=== PATIENT | male | born 1960 | race Caucasian/White ===

== ENCOUNTER 2018-01-13 11:06 | Inpatient (IN) | payer OTHER, SELFPAY ==
[2018-01-13] MEDS ORDERED: NA CHLORIDE 0.9% 1,000 ML ONE ×2 (11:44→14:14)
[2018-01-13] MEDS ORDERED: MORPHINE 4 MG/ML SYR ONE ×2 (11:44→14:14)
[2018-01-13] MEDS ORDERED: ONDANSETRON 4 MG/2 ML VIAL ONE (11:44)
[2018-01-13 12:01] LABS: Absolute Lymphocytes (CBC) 1.1 K/uL (0.7-4.9); Absolute Monocytes 0.7 K/uL (0.1-1.3); Absolute Neutrophil 9.7 K/uL (1.8-8.0); Basophils % 0.7 % (0-1.3); Eosinophils % 1.4 % (0-4.4); Hematocrit 51.2 % (39.6-49.0); Lymphocytes % 9.6 % (15.3-44.8); MCH 30.6 pg (27.0-35.0); MCV 90.3 fL (80-100); MPV 9.3 fL (7.6-11.3); Monocytes % 6.3 % (3.3-12.3); RBC Red Blood Cell Count 5.67 M/uL (4.33-5.43)
[2018-01-13 12:18] LABS: Albumin 3.9 g/dL (3.4-5.0); Bilirubin Direct 0.2 mg/dL (0-0.2); Bilirubin Total 0.6 mg/dL (0.2-1.0); Potassium 3.3 mmol/L (3.5-5.1); Protein, Total 8.1 g/dL (6.4-8.2)
--- NOTE | 2018-01-13 12:25 | RAD REPORT ---
EXAM DESCRIPTION: CT - Stone Protocol - 01/13/2018 11:57 am CLINICAL HISTORY: Abdominal pain. Left upper quadrant pain vomiting and diarrhea COMPARISON: 2014 TECHNIQUE: Computed axial tomography of the abdomen pelvis was obtained without oral or IV contrast. Lack of IV and oral contrast limits evaluation of solid organs, bowel, and vessels. Coronal reformat parth images were obtained and reviewed. All CT scans are performed using dose optimization technique as appropriate and may include automated exposure control or mA/KV adjustment according to patient size. FINDINGS: A renal calculus is not seen. An ureteral calculus is not noted. A bladder calculus is not present. Small renal masses are nonspecific without IV contrast but probably are. The liver, spleen, pancreas and adrenals appear grossly normal There is no evidence of diverticulitis. Several loops of distal jejunum/proximal ileum are moderately dilated. The terminal ileum is decompre ssed. The. The fluid is present within the rectosigmoid colon. IMPRESSION: Negative for a genitourinary calculus Moderately dilated small bowel may probably is secondary to an adynamic ileus. A closed loop obstruct ion could also have this appearance. If the patient's symptoms do not improve then followup imaging w ould be recommended for re-evaluation.
[2018-01-13] MEDS ORDERED: CEFOXITIN/SWI 1gm 1 GM/10 ML SYR ONE (14:13)
[2018-01-13] MEDS ORDERED: ONDANSETRON 4 MG/2 ML VIAL IV PRN (14:20)
--- NOTE | 2018-01-13 15:17 | EDPHYS ---
Physician Documentation [facility] Name: Larry Hancock Age: 57 yrs Sex: Male : 1960 Arrival Date: 01/13/2018 Time: 11:08 Bed 14 Private MD: Tex Salazar V ED Physician Jose Maria Anderson HPI: 01/13 19:09 This 57 yrs old Male presents to ER via Ambulatory with complaints of gs Abdominal Cramping, Diarrhea. 19:09 The patient presents with abdominal pain that is diffuse. Onset: The symptoms/episode gs began/occurred 2 day(s) ago, and became worse and became persistent. The symptoms do not radiate. Associated signs and symptoms: Pertinent positives: nausea and vomiting, Pertinent negatives: chest pain. The symptoms are described as crampy, sharp. Modifying factors: The symptoms are alleviated by nothing, the symptoms are aggravated by food. Severity of pain: At its worst the pain was moderate in the emergency department the pain is unchanged. The patient has not experienced similar symptoms in the past. Historical: - Allergies: 11:22 No Known Allergies; aa5 - PMHx: 11:22 Hypertension; aa5 - PSHx: 11:24 Hernia repair; Knee surgery; aa5 - Immunization history:: Flu vaccine is not up to date. - Social history:: Smoking status: Patient uses tobacco products, smokes one-half pack cigarettes per day. - Ebola Screening: : No symptoms or risks identified at this time. ROS: 19:09 Constitutional: Negative for fever. gs 19:09 All other systems are negative. Exam: 19:09 Head/Face: Normocephalic, atraumatic. Eyes: Pupils equal round and reactive to light, gs extra-ocular motions intact. Lids and lashes normal. Conjunctiva and sclera are non-icteric and not injected. Cornea within normal limits. Periorbital areas with no swelling, redness, or edema. ENT: Nares patent. No nasal discharge, no septal abnormalities noted. Tympanic membranes are normal and external auditory canals are clear. Oropharynx with no redness, swelling, or masses, exudates, or evidence of obstruction, uvula midline. Mucous membranes moist. Neck: Trachea midline, no thyromegaly or masses palpated, and no cervical lymphadenopathy. Supple, full range of motion without nuchal rigidity, or vertebral point tenderness. No Meningismus. Chest/axilla: Normal chest wall appearance and motion. Nontender with no deformity. No lesions are appreciated. Cardiovascular: Regular rate and rhythm with a normal S1 and S2. No gallops, murmurs, or rubs. Normal PMI, no JVD. No pulse deficits. Respiratory: Lungs have equal breath sounds bilaterally, clear to auscultation and percussion. No rales, rhonchi or wheezes noted. No increased work of breathing, no retractions or nasal flaring. Back: No spinal tenderness. No costovertebral tenderness. Full range of motion. Skin: Warm, dry with normal turgor. Normal color with no rashes, no lesions, and no evidence of cellulitis. MS/ Extremity: Pulses equal, no cyanosis. Neurovascular intact. Full, normal range of motion. Neuro: Awake and alert, GCS 15, oriented to person, place, time, and situation. Cranial nerves II-XII grossly intact. Motor strength 5/5 in all extremities. Sensory grossly intact. Cerebellar exam normal. Normal gait. 19:09 Constitutional: The patient appears alert, awake. 19:09 Constitutional: The patient appears uncomfortable. 19:09 Abdomen/GI: Inspection: distension, that is mild, Palpation: moderate abdominal tenderness, in all quadrants, rebound tenderness, is not appreciated. Vital Signs: 11:23 BP 108 / 71; Pulse 99; Resp 16 S; Temp 98.8(O); Pulse Ox 99% on R/A; Weight 111.13 kg aa5 (R); Height 6 ft. 5 in. (195.58 cm) (R); Pain 7/10; 12:22 BP 100 / 62; Pulse 106; Resp 17; Pulse Ox 94% on R/A; mh5 13:58 BP 136 / 93; Pulse 92; Resp 18; Pulse Ox 96% on R/A; ph 14:52 BP 112 / 64; Pulse 93; Resp 16; Pulse Ox 95% on R/A; ph 11:23 Body Mass Index 29.05 (111.13 kg, 195.58 cm) aa5 MDM: 11:27 Patient medically screened. 19:09 Differential diagnosis: bowel obstruction, gastritis, non-specific abd pain, gs pancreatitis, Peptic Ulcer Disease. Data reviewed: vital signs, nurses notes. Response to treatment: the patient's symptoms have mildly improved after treatment, and as a result, I will admit patient. 01/13 11:30 Order name: Basic Metabolic Panel; Complete Time: 12:37 01/13 11:30 Order name: CBC with Diff; Complete Time: 12:37 01/13 11:30 Order name: Hepatic Function; Complete Time: 12:37 01/13 11:30 Order name: Lipase; Complete Time: 12:37 01/13 13:46 Order name: Blood Culture* 01/13 14:23 Order name: Basic Metabolic Panel [facility] 01/13 11:30 Order name: CT Stone Protocol; Complete Time: 12:37 01/13 14:23 Order name: Basic Metabolic Panel [facility] 01/13 14:23 Order name: CBC with Automated Diff [facility] 01/13 14:23 Order name: CBC with Automated Diff [facility] 01/13 14:23 Order name: Lipase [facility] 01/13 14:23 Order name: Lipase [facility] 01/13 14:23 Order name: Liver (Hepatic) Function [facility] 01/13 14:23 Order name: Liver (Hepatic) Function [facility] 01/13 11:30 Order name: IV Saline Lock; Complete Time: 11:53 01/13 11:30 Order name: Labs collected and sent; Complete Time: 11:54 01/13 14:23 Order name: CONS Physician Consult [facility] 01/13 14:23 Order name: NPO; Complete Time: 14:36 EDMS Administered Medications: 11:52 Drug: morphine 4 mg Route: IVP; Site: left antecubital; ph 11:53 Drug: NS 0.9% 1000 ml Route: IV; Rate: 1 bolus; Site: right antecubital; ph 11:53 Drug: Zofran 4 mg Route: IVP; Site: right antecubital; ph 14:35 Drug: morphine 4 mg Route: IVP; Site: right antecubital; ph 14:38 Drug: NS 0.9% 1000 ml Route: IV; Rate: 175 ml/hr; Site: right antecubital; ph 15:10 Drug: cefOXitin 1 grams Route: IVPB; Infused Over: 30 mins; Site: right antecubital; ph Disposition: 01/13/18 15:16 Hospitalization ordered by Tex Salazar for Inpatient Admission. Preliminary diagnosis is Other intestinal obstruction. - Bed requested for Telemetry/MedSurg (Inpatient). - Status is Inpatient Admission. ph - Condition is Stable. - Problem is new. - Symptoms have improved. UTI on Admission? No Critical care time excluding procedures: 19:09 Critical care time: Bedside Care: 10 minutes, Consultation: 10 minutes, Family gs Intervention: 10 minutes. Total time: 30 minutes Signatures: Dispatcher [employer] EDMS Reyna Neumann Audri, RN RN aa5 Gerri Garcia RN RN Anderson, MD ELIZABETH Moise gs Corrections: (The following items were deleted from the chart) 15:28 15:16 Hospitalization Ordered by Tex Salazar MD for Inpatient Admission. Preliminary bd diagnosis is Other intestinal obstruction. Bed requested for Telemetry/MedSurg (Inpatient). Status is Inpatient Admission. Condition is Stable. Problem is new. Symptoms have improved. UTI on Admission? No. gs 15:29 15:28 01/13/2018 15:16 Hospitalization Ordered by Tex Salazar MD for Inpatient bd Admission. Preliminary diagnosis is Other intestinal obstruction. Bed requested for Telemetry/MedSurg (Inpatient). Status is Inpatient Admission. Condition is Stable. Problem is new. Symptoms have improved. UTI on Admission? No. bd 15:49 15:29 01/13/2018 15:16 Hospitalization Ordered by Tex Salazar MD for Inpatient ph Admission. Preliminary diagnosis is Other intestinal obstruction. Bed requested for Telemetry/MedSurg (Inpatient). Status is Inpatient Admission. Condition is Stable. Problem is new. Symptoms have improved. UTI on Admission? No. bd
--- NOTE | 2018-01-13 15:17 | ER ---
Nurse's Notes [facility] Name: Larry Hancock Age: 57 yrs Sex: Male : 1960 Arrival Date: 01/13/2018 Time: 11:08 Bed 14 Private MD: Tex Salazar V Diagnosis: Other intestinal obstruction Presentation: 01/13 11:21 Presenting complaint: Patient states: LUQ pain that began yesterday. Pt reports N/V/D aa5 today. Transition of care: patient was not received from another setting of care. Onset of symptoms was January 13, 2018. Risk Assessment: Do you want to hurt yourself or someone else? Patient reports no desire to harm self or others. Initial Sepsis Screen: Does the patient meet any 2 criteria? No. Patient's initial sepsis screen is negative. Does the patient have a suspected source of infection? No. Patient's initial sepsis screen is negative. Care prior to arrival: None. 11:21 Method Of Arrival: Ambulatory aa5 11:21 Acuity: DIANDRA 3 aa5 Historical: - Allergies: 11:22 No Known Allergies; aa5 - PMHx: 11:22 Hypertension; aa5 - PSHx: 11:24 Hernia repair; Knee surgery; aa5 - Immunization history:: Flu vaccine is not up to date. - Social history:: Smoking status: Patient uses tobacco products, smokes one-half pack cigarettes per day. - Ebola Screening: : No symptoms or risks identified at this time. Screenin:47 Abuse screen: Denies threats or abuse. Denies injuries from another. Nutritional ph screening: No deficits noted. Tuberculosis screening: No symptoms or risk factors identified. Fall Risk None identified. Assessment: 11:35 General: Appears in no apparent distress. uncomfortable, slender, well groomed, ph Behavior is calm, cooperative, appropriate for age, Denies fever. Pain: Complains of pain in left upper quadrant Pain currently is 9 out of 10 on a pain scale. Neuro: Level of Consciousness is awake, alert, obeys commands, Oriented to person, place, time, situation. Cardiovascular: Capillary refill < 3 seconds Patient's skin is warm and dry. Respiratory: Airway is patent Respiratory effort is even, unlabored, Respiratory pattern is regular, symmetrical. GI: Abdomen is flat, non-distended, Bowel sounds present X 4 quads. Abd is soft X 4 quads Abdomen is tender to palpation in left upper quadrant Reports upper abdominal pain, diarrhea, nausea, vomiting. : Denies burning with urination, urinary frequency. Derm: Skin is intact, is healthy with good turgor, Skin is pink, warm \T\ dry. Musculoskeletal: Circulation, motion, and sensation intact. Range of motion: intact in all extremities. 12:45 Reassessment: Patient appears in no apparent distress at this time. Patient and/or ph family updated on plan of care and expected duration. Pain level reassessed. Patient is alert, oriented x 3, equal unlabored respirations, skin warm/dry/pink. Pt resting quietly, states that pain has improved to 7/10, denies nausea at this time, awaiting CT and lab results. 13:51 Reassessment: Patient appears in no apparent distress at this time. Patient and/or ph family updated on plan of care and expected duration. Pain level reassessed. Patient is alert, oriented x 3, equal unlabored respirations, skin warm/dry/pink. ERP at bedside to speak w/ pt. 15:15 Reassessment: Patient appears in no apparent distress at this time. Patient and/or ph family updated on plan of care and expected duration. Pain level reassessed. Patient is alert, oriented x 3, equal unlabored respirations, skin warm/dry/pink. Ptr resting quietly, awaiting room assignmmet. Vital Signs: 11:23 BP 108 / 71; Pulse 99; Resp 16 S; Temp 98.8(O); Pulse Ox 99% on R/A; Weight 111.13 kg aa5 (R); Height 6 ft. 5 in. (195.58 cm) (R); Pain 7/10; 12:22 BP 100 / 62; Pulse 106; Resp 17; Pulse Ox 94% on R/A; mh5 13:58 BP 136 / 93; Pulse 92; Resp 18; Pulse Ox 96% on R/A; ph 14:52 BP 112 / 64; Pulse 93; Resp 16; Pulse Ox 95% on R/A; ph 11:23 Body Mass Index 29.05 (111.13 kg, 195.58 cm) aa5 ED Course: 11:08 Patient arrived in ED. rg4 11:09 Tex Salazar MD is Private Physician. rg4 11:19 Jose Maria Anderson MD is Attending Physician. gs 11:22 Triage completed. aa5 11:22 Arm band placed on. aa5 11:33 Gerri Garcia RN is Primary Nurse. ph 11:57 CT Stone Protocol In Process Unspecified. EDMS 13:47 Patient has correct armband on for positive identification. Placed in gown. Bed in low ph position. Call light in reach. Side rails up X 1. Pulse ox on. NIBP on. Warm blanket given. 15:14 Tex Salazar MD is Hospitalizing Provider. gs 15:45 No provider procedures requiring assistance completed. Patient admitted, IV remains in ph place. Administered Medications: 11:52 Drug: morphine 4 mg Route: IVP; Site: left antecubital; ph 11:53 Drug: NS 0.9% 1000 ml Route: IV; Rate: 1 bolus; Site: right antecubital; ph 11:53 Drug: Zofran 4 mg Route: IVP; Site: right antecubital; ph 14:35 Drug: morphine 4 mg Route: IVP; Site: right antecubital; ph 14:38 Drug: NS 0.9% 1000 ml Route: IV; Rate: 175 ml/hr; Site: right antecubital; ph 15:10 Drug: cefOXitin 1 grams Route: IVPB; Infused Over: 30 mins; Site: right antecubital; ph Outcome: 15:16 Decision to Hospitalize by Provider. gs 15:49 Patient left the ED. ph 15:49 Admitted to Med/surg accompanied by tech, family with patient, via wheelchair, with ph chart. 15:49 Condition: stable 15:49 Instructed on the need for admit. Signatures: Dispatcher [employer] EDNJ Julianna Rodriguez RN RN aa5 Hall, Patricia, RN RN Myriam Kilgore [facility] Shivani Terry [facility] Jose Maria Anderson MD MD gs
[2018-01-13 16:09] VITALS: BMI 31.1
[2018-01-13 16:30] LABS: Urine Appearance CLOUDY; Urine Blood 1+ (NEG); Urine Color ORANGE; Urine Glucose NEGATIVE (NEG); Urine Protein 2+ (NEG); Urine Specific Gravity >=1.030 (1.005-1.030); Urine Urobilinogen 0.2 mg/dL (0.2-1.0); Urine pH 5.5 (5.0-7.0)
[2018-01-13 16:35] LABS: Urine Bilirubin 1+ (NEG)
[2018-01-13 16:43] LABS: Urine Bacteria <20 /HPF (NONE SEEN); Urine Culture Reflex Order NOT NEEDED; Urine Mucus 2+ /HPF (NONE SEEN)
[2018-01-13] MEDS: D5 0.45 NS 1,000 ML IV SCH ×2 (16:56→21:18)
[2018-01-13] MEDS: CEFOXITIN/SWI 1gm 1 GM/10 ML SYR IV SCH (18:00)
[2018-01-13] MEDS: MORPHINE 4 MG/ML SYR IV PRN (18:59)
[2018-01-13] MEDS: LORazepam 2 MG/ML VIAL IV PRN (21:18)
[2018-01-14] MEDS: MORPHINE 4 MG/ML SYR IV PRN ×5 (01:09→21:22)
[2018-01-14] MEDS: D5 0.45 NS 1,000 ML IV SCH ×5 (01:12→21:26)
[2018-01-14] MEDS: LORazepam 2 MG/ML VIAL IV PRN ×2 (04:04→08:31)
--- NOTE | 2018-01-14 05:01 | HP ---
Date of Admission: 01/13/2018 Chief Complaint: Abdominal distention. History Of Present Illness: The patient is a 57-year-old gentleman with past medical history of high blood pressure, but not many other medical problems, who has had umbilical hernia repair multiple ye ars ago, comes in with abdominal pain, distention, diarrhea for about a day or so, followed by vomiti ng for one time and mainly his abdomen which is distended and he had a CT scan of the abdomen which s howed bowel obstruction on a CAT scan in the emergency Room, so he is admitted now in the hospital fo r further workup. Past Medical History: High blood pressure, diverticulosis of colon, cervical radicular pain in the p ast. Social History: Former smoker. Medications: Amlodipine 2.5 mg once a day, losartan HCT 100-12.5 once a day. Past Surgical History: He had umbilical hernia repair multiple years ago and he had a knee surgery a nd shoulder surgery in the past. Physical Examination: Vital Signs: Mr. Hutchins blood pressure is 108/71, pulse is 99, temperature 98.8. HEENT Exam: No JVD. No carotid bruits. Chest: Clear. Heart: Irregular. Abdomen: No guarding. No rebound. There is a distention of abdomen. Bowel sounds are hyperactive and loud and diffuse tenderness around the umbilical region, but no rebound and no guarding or rigidi ty. Imaging Data: On CT scan of the abdomen, patient shows moderately dilated small bowel, closed loop o bstruction could have similar appearance, and there is no renal stone visible. Laboratory Data: On laboratory examination, white count 11,800, hemoglobin 17, hematocrit 51, platel ets of 235,000. Potassium 3.3, creatinine 1.70, globulin of 4.2. EKG report is not available. Ches t x-ray is not done. We will order a chest x-ray. Assessment And Plan: Bowel obstructive. I have advised the nurses to do NG tube with low intermitte nt suction tonight. I just got a phone call from Ivett, the RN, that there was output of 1300 mL f rom the NG tube as soon as they placed it in. The patient is very anxious about NG tubes, so we are giving him Ativan 0.5 mg q.4 h. p.r.n. for agitation and anxiousness from the NG tube itself. Dr. Vita castillo has been consulted. We will do an x-ray every day or according to what Dr. Dominguez would want, and follow up on lab work every day. Prognosis is overall fair. Hopefully, we will be able to avoid martinez rgery at this point. KATHERINE/YONATHAN Voice ID: [id number]
[2018-01-14] MEDS: CEFOXITIN/SWI 1gm 1 GM/10 ML SYR IV SCH ×4 (05:45→18:30)
[2018-01-14 05:57] LABS: Absolute Lymphocytes (CBC) 2.3 K/uL (0.7-4.9); Absolute Monocytes 1.3 K/uL (0.1-1.3); Absolute Neutrophil 5.2 K/uL (1.8-8.0); Basophils % 0.4 % (0-1.3); Eosinophils % 2.9 % (0-4.4); Hematocrit 41.9 % (39.6-49.0); Lymphocytes % 25.3 % (15.3-44.8); MCV 89.5 fL (80-100); MPV 9.8 fL (7.6-11.3); Monocytes % 14.4 % (3.3-12.3); RBC Red Blood Cell Count 4.68 M/uL (4.33-5.43)
[2018-01-14 06:20] LABS: Albumin 3.1 g/dL (3.4-5.0); Bilirubin Direct 0.1 mg/dL (0-0.2); Bilirubin Total 0.3 mg/dL (0.2-1.0); Potassium 3.2 mmol/L (3.5-5.1); Protein, Total 6.5 g/dL (6.4-8.2)
[2018-01-14] MEDS: KCL 20 MEQ/100 mL IVPB 20 MEQ/100 ML BAG IV SCH ×2 (06:55→08:36)
--- NOTE | 2018-01-14 07:57 | RAD REPORT ---
EXAM DESCRIPTION: RAD - Abdomen Single View - 01/13/2018 10:14 pm CLINICAL HISTORY: Device placement Dobhoff tube placement FINDINGS: The tip of a Dobhoff tube lies within the distal stomach. Dilated small bowel within the left upper quadrant is seen which could indicate an obstruction or adynamic ileus
--- NOTE | 2018-01-14 14:45 | RAD REPORT ---
EXAM DESCRIPTION: RAD - Abdomen Acute Series - 01/14/2018 2:33 pm CLINICAL HISTORY: Abdominal pain, small bowel obstruction COMPARISON: Chest film August 10, 2014, CT abdomen and pelvis January 13 FINDINGS: Lung volumes are low. Lung base atelectasis present. Failure and acute infiltrate are not suspected. Heart size and pulmonary vasculature are normal. No pleural effusion, pneumothorax or othe r acute cardiopulmonary process seen. NG tube is in place well positioned within a decompressed stomach. Air is present in the right side c olon. Stool and air present in the left side colon. No colon dilatation. Dilated small bowel loops ar e present primarily left upper quadrant of the abdomen. Small bowel pattern has improved but not full y resolved. No free air or pneumatosis identifiable. No suspicious calcifications. No other suspicious for significant findings. IMPRESSION: Dilated small bowel pattern has improved but not resolved. No free air or pneumatosis se en. No acute chest finding. NG tube is in good position within a decompressed stomach.
--- NOTE | 2018-01-14 14:59 | CON ---
Date of Consultation: 01/13/2018 Reason: Abdominal distention. History Of Present Illness: The patient is a 57-year-old gentleman who comes in with acute onset of diarrhea on Saturday morning following eating spicy chicken on Saturday night. It lasted for about a d ay or so. He had some nausea and vomiting on Saturday; however his pain in the left upper quadrant did not improve. He came to the ER, was diagnosed with adynamic ileus versus small-bowel obstruction ve rsus gastroenteritis and I was consulted. He is currently passing gas and having bowel movements. N o nausea or vomiting but the NG tube is putting quite a bit out. No blood in his stool. No dysuria or hematuria. No sore throat, runny nose, cough, headaches, or dizziness. No chest pain. No fever or chills. Review of Systems: Otherwise unremarkable. Past Medical History: Significant for high blood pressure, diverticulosis. Past Surgical History: Umbilical hernia surgery, knee surgery and shoulder surgery. Allergies: NONE. THE PATIENT QUIT SMOKING A COUPLE OF DAYS AGO. DRINKS OCCASIONALLY. Family History: Significant for breast cancer and ALS in the parents. Physical Examination: Vital Signs: His vital signs are stable. He is afebrile. General: He is awake, alert, orient x3. Head and neck: Cranial nerves 2 through 12 grossly within normal limits. No neck masses. No JVD. Throat clear. Neck is supple. Chest: Clear. Heart: S1, S2. Abdomen: Soft, slightly distended. Minimal tenderness in the left upper quadrant and right middle q uadrant. No rebound, rigidity, or guarding. Extremities: Adequately perfused. Nontender. Neuro: Nonfocal. Laboratory Data: White count was 11.8 on admission, currently is 9.2, there is no left shift today however. Chemistry reviewed, he has hypokalemia being replaced. Abdominal x-ray done today and CAT scan done yesterday reviewed, basically shows a dilated small bowel within the left upper quadrant an d CT shows moderately dilated small bowel. Close loop could have this appearance. Follow up was rec ommended, that was from yesterday's CAT scan. Assessment: Likely gastroenteritis. I do not think the patient is obstructed because he is having b owel movements and passing gas. Recommendations: Continue IV fluid, IV antibiotics, NG tube, bowel rest. We will get another x-ray tomorrow, should it not improve then we will consider small bowel series. No need for any acute surg ical intervention at this time. ELLIE/YONATHAN Voice ID: [id number] Report ID: [id number]
--- NOTE | 2018-01-14 18:02 | PN ---
Subjective: The patient is feeling lot better. Abdominal distention is improved immediately after p utting an NG tube yesterday. The 1.5 L of fluid came out from the NG tube with low intermittent suct ion within half an hour and he has felt significantly better after that. He still continues to have diarrhea, which is actually he had dye on admission, not anymore since then. Objective: General: He is feeling lot better. Vital Signs: Blood pressure 106/56, comfortable in the bed. He has an NG tube with low intermittent suction. Abdomen: Soft, nontender. Neurologic: Normal. Assessment And Plan: 1.Possible bowel obstruction. NG tube improved the condition significantly, but it is unusual. The patient continues to have a bowel movement after bowel obstruction. This could be a partial obstruc tion, thus I have been consulted. 2.High blood pressure. BP is low right now currently, so we will hold all the medications. KATHERINE/YONATHAN Voice ID: [id number] Report ID: [id number]
[2018-01-15] MEDS: MORPHINE 4 MG/ML SYR IV PRN ×6 (01:09→22:46)
[2018-01-15 04:17] LABS: Absolute Lymphocytes (CBC) 2.2 K/uL (0.7-4.9); Absolute Monocytes 1.2 K/uL (0.1-1.3); Absolute Neutrophil 6.1 K/uL (1.8-8.0); Basophils % 0.5 % (0-1.3); Eosinophils % 2.9 % (0-4.4); Hematocrit 40.2 % (39.6-49.0); Lymphocytes % 22.4 % (15.3-44.8); MCV 88.7 fL (80-100); MPV 9.5 fL (7.6-11.3); Monocytes % 12.4 % (3.3-12.3); RBC Red Blood Cell Count 4.53 M/uL (4.33-5.43)
[2018-01-15 04:33] LABS: Magnesium 1.9 mg/dL (1.8-2.4); Phosphorus 3.2 mg/dL (2.5-4.9); Potassium 3.4 mmol/L (3.5-5.1)
[2018-01-15] MEDS: CEFOXITIN/SWI 1gm 1 GM/10 ML SYR IV SCH ×4 (05:15→18:28)
[2018-01-15] MEDS: KCL 20 MEQ/100 mL IVPB 20 MEQ/100 ML BAG IV SCH ×2 (06:10→09:36)
--- NOTE | 2018-01-15 08:32 | RAD REPORT ---
EXAM DESCRIPTION: RAD - Abdomen W Erect - 01/15/2018 7:51 am CLINICAL HISTORY: F/U SBO Pain COMPARISON: Stone Protocol dated 01/13/2018 FINDINGS: A few mildly prominent small bowel loops are present in the right abdomen. Air-filled case sverse colon also seen. The bowel gas pattern appears mildly improved since comparative radiographs. Enteric tube descends in the stomach. No pneumoperitoneum. No pathologic calcifications. IMPRESSION: Improvement in a bowel-gas pattern since the comparative study.
--- NOTE | 2018-01-15 13:43 | PN ---
Date of Progress Note: 01/15/2018 Subjective: The patient is awake, alert, passing gas. Objective: Vital signs: Stable. Afebrile. Abdomen: Soft, nondistended, nontender. Positive bowel sounds. Laboratory Data: Reviewed. Abdominal x-ray reviewed, markedly improved. Assessment: Small bowel obstruction, likely secondary to gastroenteritis. Recommendations: Clamp the NG tube. Start clear liquids. Continue antibiotics. The patient is pro gressing well. /MODL Voice ID: [id number] Report ID: [id number]
[2018-01-15] MEDS: D5 0.45 NS 1,000 ML IV SCH (16:03)
--- NOTE | 2018-01-15 22:50 | PN ---
Subjective: Larry Hancock is doing lot better. Abdomen is soft. Denies any chest pain, nausea, or vomiting. Physical Examination: Vital Signs: Blood pressure 119/66. Pulse is 66. Chest: Clear. Heart: Regular. Abdomen: Soft. Positive bowel sounds. Has been passing gas. Assessment And Planning: Partial bowel obstruction. Clinically, the patient has a good clearance of the abdominal area now. Dr. Dominguez is trying clear liquid fluid and if it works good, he will be adv ancing diet as tolerated. KATHERINE/YONATHAN Voice ID: [id number] Report ID: [id number]
[2018-01-16] MEDS: D5 0.45 NS 1,000 ML IV SCH ×3 (00:11→21:32)
[2018-01-16] MEDS: CEFOXITIN/SWI 1gm 1 GM/10 ML SYR IV SCH ×4 (00:11→17:19)
[2018-01-16] MEDS: MORPHINE 4 MG/ML SYR IV PRN ×2 (02:18→06:21)
[2018-01-16 05:19] LABS: Potassium 3.4 mmol/L (3.5-5.1)
[2018-01-16] MEDS ORDERED: POTASSIUM 25 MEQ EFFERV TAB PO ONE (07:03)
--- NOTE | 2018-01-16 08:47 | RAD REPORT ---
EXAM DESCRIPTION: RAD - Abdomen W Erect - 01/16/2018 6:45 am CLINICAL HISTORY: Abdominal pain FINDINGS: A nasogastric tube remains in place Only a few loops of small bowel are mildly dilated. Air is present throughout the colon Free air is not seen beneath the diaphragm. IMPRESSION: Continued improvement in the small bowel obstruction
[2018-01-16] MEDS ORDERED: AMLODIPINE 2.5 MG TAB PO SCH (09:00)
[2018-01-16] MEDS ORDERED: HOME MED 1 EA UNK (Losartan/Hydrochlorothiazide [Losartan-Hctz 100-12.5 Mg Tab] 1 TAB) PO SCH (09:00)
[2018-01-16] MEDS ORDERED: LOSARTAN POTASSIUM 50 MG TABLET PO SCH (09:00)
[2018-01-16] MEDS ORDERED: hydroCHLOROthiazide 12.5 MG CAP PO SCH (09:00)
[2018-01-16] MEDS ORDERED: PHENOL 1.4% ORAL SPRAY 180ML MM PRN (09:03)
[2018-01-16] MEDS: NORVASC 2.5 MG PO SCH (12:05)
[2018-01-16] MEDS: LOSARTAN HCTZ PO SCH (12:06)
--- NOTE | 2018-01-16 16:00 | PN ---
Date of Progress Note: 01/16/2018 Subjective: The patient is awake, alert, tolerating clear liquids. NG residual is very small this m orning. X-ray shows improvement. Objective: Abdomen: Completely benign. Assessment: Gastroenteritis, small bowel obstruction, RESOLVING. Recommendation: DC NG tube. Advance to full liquid diet. If tolerated, we will advance to GI soft, and the patient can go home after that. ELLIE/YONATHAN Voice ID: [id number] Report ID: [id number]
--- NOTE | 2018-01-16 17:51 | PN ---
Subjective: The patient is feeling lot better. Denies any chest pain, nausea, vomiting. He has an NG tube, which is sealed for now to help him improve his GI tract function. His abdomen is soft, non tender. No rebound. No guarding. No rigidity. On investigation, patient's x-ray abdominal examina tion today shows only a few bowel loops which are mildly dilated and area has improved overall. Neel l obstruction has improved. Potassium was 3.4, slightly low, being replaced. Assessment: Bowel obstruction. The patient is doing NG tube with suction and now is being tried on food, liquids. He is tolerating so far. He will be getting full liquid tonight. Possible discharge tomorrow. KATHERINE/MODL Voice ID: [id number] Report ID: [id number]
[2018-01-17] MEDS: CEFOXITIN/SWI 1gm 1 GM/10 ML SYR IV SCH ×2 (01:19→05:17)
[2018-01-17] MEDS: D5 0.45 NS 1,000 ML IV SCH (05:18)
[2018-01-17 05:53] LABS: Potassium 3.4 mmol/L (3.5-5.1)
[2018-01-17] MEDS ORDERED: POTASSIUM 25 MEQ EFFERV TAB PO ONE (06:08)
[2018-01-17 08:02] VITALS: BP 121/70; TEMP 97.2
[2018-01-17] MEDS: LOSARTAN HCTZ PO SCH (08:43)
[2018-01-17] MEDS: NORVASC 2.5 MG PO SCH (08:44)
[2018-01-17 09:56] VITALS: O2SAT 97
--- NOTE | 2018-01-17 14:16 | PN ---
Date of Progress Note: 01/17/2018 Subjective: The patient is awake, alert, no complaints tolerating a regular diet. Passing gas. Hav ing bowel movements. Objective: Vital Signs: Stable, afebrile. Abdomen: Completely benign. Assessment: Small bowel obstruction, gastroenteritis, resolved. Recommendation: The patient clear from surgery point for discharge. Followup with me gail BURNS Voice ID: [id number] Report ID: [id number]
== END 2018-01-17 09:42 | disposition home or self-care (01) | DRG 390 ==
LOC: ER 11:06 → ERHOLD 14:19 → 4TH 15:32
PROVIDERS: ADMIT Internal Medicine; ATTEND Internal Medicine
PROC: 0D9670Z Drainage of Stomach with Drainage Device, Via Natural or Artificial Opening (ICD-10-PCS; principal; 2018-01-13)
DX: K56.609 Unspecified intestinal obstruction, unspecified as to partial versus complete obstruction (principal); Z87.891 Personal history of nicotine dependence; K52.9 Noninfective gastroenteritis and colitis, unspecified; I10 Essential (primary) hypertension
CPT/HCPCS: 36415; 74018; 74019; 74022; 74176; 76377; 80048; 80076; 81001; 83690; 83735; 84100; 84132; 85025; 87040; 99285; J2405; J7030

== ENCOUNTER 2018-11-08 13:30 | Emergency (ER) | payer OTHER ==
[2018-11-08 14:40] LABS: Absolute Lymphocytes (CBC) 1.9 K/uL (0.7-4.9); Basophils % 0.2 % (0-1.3); Eosinophils % 1.3 % (0-4.4); Hematocrit 49.5 % (39.6-49.0); Lymphocytes % 11.7 % (15.3-44.8); MPV 9.6 fL (7.6-11.3); Monocytes % 8.3 % (3.3-12.3); RBC Red Blood Cell Count 5.56 M/uL (4.33-5.43)
[2018-11-08] MEDS ORDERED: NA CHLORIDE 0.9% 1,000 ML ONE (14:46)
[2018-11-08 14:57] LABS: Albumin 4.2 g/dL (3.4-5.0); Bilirubin Direct 0.2 mg/dL (0-0.2); Bilirubin Total 0.9 mg/dL (0.2-1.0); Potassium 3.3 mmol/L (3.5-5.1); Protein, Total 8.1 g/dL (6.4-8.2)
[2018-11-08] MEDS ORDERED: FENTANYL CITR 100 MCG/2 ML ONE (15:23)
[2018-11-08 15:35] LABS: Urine Blood 1+ (NEG); Urine Glucose NEGATIVE (NEG); Urine Protein 3+ (NEG); Urine Specific Gravity >1.030 (1.005-1.030)
[2018-11-08 15:38] LABS: Urine RBC <5 /HPF (NONE SEEN)
[2018-11-08 15:39] LABS: Calcium Oxalate Crystals- Ur MANY (NONE SEEN); Urine Bacteria 20-50 /HPF (NONE SEEN); Urine Culture Reflex Order REFLEXED; Urine Mucus 3+ /HPF (NONE SEEN)
--- NOTE | 2018-11-08 15:50 | RAD REPORT ---
EXAM DESCRIPTION: CT - Stone Protocol - 11/08/2018 3:31 pm CLINICAL HISTORY: Abdominal pain. COMPARISON: December 2017 TECHNIQUE: Computed axial tomography of the abdomen pelvis was obtained without oral or IV contrast. Lack of IV and oral contrast limits evaluation of solid organs, bowel, and vessels. Coronal reformat parth images were obtained and reviewed. All CT scans are performed using dose optimization technique as appropriate and may include automated exposure control or mA/KV adjustment according to patient size. FINDINGS: A renal calculus is not seen. An ureteral calculus is not noted. A bladder calculus is not present. Small renal cysts The liver, spleen, pancreas and adrenals appear grossly normal There is no evidence of diverticulitis. The appendix appears normal Small amount of pelvic ascites. Fluid within nondilated bowel Small inguinal hernias contain fat IMPRESSION: Negative for a genitourinary calculus Small amount of pelvic ascites Fluid within nondilated bowel may indicate an enteritis
--- NOTE | 2018-11-08 16:42 | EDPHYS ---
Physician Documentation [facility] Name: Larry Hancock Age: 58 yrs Sex: Male : 1960 Arrival Date: 11/08/2018 Time: 13:33 Bed 15 Private MD: Tex Salazar V ED Physician Jose Maria Anderson HPI: 11/09 08:57 This 58 yrs old Male presents to ER via Ambulatory with complaints of gs Abdominal Pain, Vomiting/Diarrhea. 08:57 The patient presents to the emergency department with nausea, vomiting, diarrhea, gs abdominal pain, of the posterior aspect of right lateral abdomen, left upper quadrant and left lower quadrant. Onset: The symptoms/episode began/occurred 3 day(s) ago, and became persistent. Possible causes: bad food exposure. The symptoms are aggravated by nothing. The symptoms are alleviated by nothing. Associated signs and symptoms: Pertinent positives: diarrhea. Severity of symptoms: At their worst the symptoms were moderate in the emergency department the symptoms have improved moderately. The patient has experienced a previous episode. Historical: - Allergies: 11/08 13:57 No Known Allergies; aj1 - Home Meds: 13:57 losartan-hydrochlorothiazide 100-12.5 mg oral tab 1 tab once daily [Active]; amlodipine aj1 2.5 mg tab 1 tab once daily [Active]; glucosamine-chondroitin oral oral twice a day [Active]; Super B Complex-Vitamin C oral tab daily [Active]; Vitamin D3 oral oral daily [Active]; aspirin 81 mg Oral chew 1 tab once daily [Active]; - PMHx: 13:57 Hypertension; bowel obstruction; aj1 - PSHx: 13:57 Knee surgery; shoulder surgery; vastectomy; Hernia repair; aj1 - Immunization history:: Flu vaccine is up to date. - Social history:: Smoking status: Patient uses tobacco products, smokes one pack cigarettes per day. - Ebola Screening: : Patient denies travel to an Ebola-affected area in the 21 days before illness onset. ROS: 11/09 08:57 Constitutional: Negative for fever. gs All other systems are negative. Exam: 08:57 Head/Face: Normocephalic, atraumatic. Eyes: Pupils equal round and reactive to light, gs extra-ocular motions intact. Lids and lashes normal. Conjunctiva and sclera are non-icteric and not injected. Cornea within normal limits. Periorbital areas with no swelling, redness, or edema. ENT: Nares patent. No nasal discharge, no septal abnormalities noted. Tympanic membranes are normal and external auditory canals are clear. Oropharynx with no redness, swelling, or masses, exudates, or evidence of obstruction, uvula midline. Mucous membranes moist. Neck: Trachea midline, no thyromegaly or masses palpated, and no cervical lymphadenopathy. Supple, full range of motion without nuchal rigidity, or vertebral point tenderness. No Meningismus. Chest/axilla: Normal chest wall appearance and motion. Nontender with no deformity. No lesions are appreciated. Cardiovascular: Regular rate and rhythm with a normal S1 and S2. No gallops, murmurs, or rubs. Normal PMI, no JVD. No pulse deficits. Respiratory: Lungs have equal breath sounds bilaterally, clear to auscultation and percussion. No rales, rhonchi or wheezes noted. No increased work of breathing, no retractions or nasal flaring. Skin: Warm, dry with normal turgor. Normal color with no rashes, no lesions, and no evidence of cellulitis. MS/ Extremity: Pulses equal, no cyanosis. Neurovascular intact. Full, normal range of motion. Neuro: Awake and alert, GCS 15, oriented to person, place, time, and situation. Cranial nerves II-XII grossly intact. Motor strength 5/5 in all extremities. Sensory grossly intact. Cerebellar exam normal. Normal gait. 08:57 Constitutional: The patient appears alert, awake, uncomfortable. 08:57 Abdomen/GI: Palpation: moderate abdominal tenderness, in the left upper quadrant and left lower quadrant, rebound tenderness, is not appreciated. 08:57 Back: CVA tenderness, that is mild, is noted on the right. Vital Signs: 11/08 13:57 BP 104 / 77; Pulse 121; Resp 20; Temp 98.2(O); Pulse Ox 97% on R/A; Weight 117.93 kg aj1 (R); Height 6 ft. 5 in. (195.58 cm) (R); Pain 4/10; 14:33 BP 110 / 76; Pulse 92; Resp 17; Temp 98.0(O); Pulse Ox 94% on R/A; mh5 16:12 BP 112 / 72; Pulse 89; Resp 17; Pulse Ox 100% on R/A; Pain 2/10; sg 13:57 Body Mass Index 30.83 (117.93 kg, 195.58 cm) aj1 MDM: 15:00 Patient medically screened. 11/09 08:57 Differential diagnosis: Nonspecific abd pain, pancreatitis, gastroenteritis, uti. Data reviewed: vital signs, nurses notes, lab test result(s), radiologic studies. Counseling: I had a detailed discussion with the patient and/or guardian regarding: the historical points, exam findings, and any diagnostic results supporting the discharge/admit diagnosis, lab results, radiology results, the need for outpatient follow up. Response to treatment: the patient's symptoms have markedly improved after treatment, and as a result, I will discharge patient. 11/08 14:16 Order name: Basic Metabolic Panel 11/08 14:16 Order name: CBC with Diff; Complete Time: 14:58 11/08 14:16 Order name: Hepatic Function; Complete Time: 14:58 11/08 14:16 Order name: Lipase; Complete Time: 14:58 11/08 14:16 Order name: Urine Microscopic Only; Complete Time: 16:05 11/08 14:18 Order name: Basic Metabolic Panel; Complete Time: 14:58 EDMS 11/08 14:16 Order name: IV Saline Lock; Complete Time: 14:46 11/08 14:16 Order name: Labs collected and sent; Complete Time: 14:46 11/08 14:16 Order name: Urine Dipstick-Ancillary (obtain specimen); Complete Time: 15:40 11/08 15:06 Order name: CT Stone Protocol; Complete Time: 16:05 11/08 15:27 Order name: Urine Dipstick--Ancillary (enter results); Complete Time: 16:05 sd 11/08 15:42 Order name: Urine Culture EDMS Administered Medications: 11/08 15:10 Drug: NS 0.9% 1000 ml Route: IV; Rate: 1 bolus; Site: right antecubital; sg 16:15 Follow up: Response: No adverse reaction; IV Status: Completed infusion; IV Intake: sg 1000ml 15:24 Drug: fentaNYL (PF) 50 mcg Route: IVP; Site: right antecubital; sg 16:00 Follow up: Response: No adverse reaction; Pain is decreased sg Disposition: 11/08/18 16:40 Discharged to Home. Impression: Generalized abdominal pain, Urinary tract infection, site not specified. - Condition is Stable. - Discharge Instructions: Abdominal Pain, Adult, Urinary Tract Infection, Adult. - Prescriptions for Keflex 500 mg Oral Capsule - take 1 capsule by ORAL route every 12 hours for 10 days; 20 capsule. Tylenol- Codeine #4 300-60 mg Oral Tablet - take 1 tablet by ORAL route every 6 hours As needed; 10 tablet. - Work release form, Medication Reconciliation Form, Thank You Letter, Antibiotic Education, Prescription Opioid Use form. - Follow up: Private Physician; When: 2 - 3 days; Reason: Re-evaluation by your physician. Signatures: Dispatcher [employer] EDKaren Bustillos RN RN aj1 Zander Rivera RN RN sg Shivani Benjamin ms, Gregory, MD MD gs Corrections: (The following items were deleted from the chart) 17:00 16:40 11/08/2018 16:40 Discharged to Home. Impression: Generalized abdominal pain; ms Urinary tract infection, site not specified. Condition is Stable. Forms are Medication Reconciliation Form, Thank You Letter, Antibiotic Education, Prescription Opioid Use. Follow up: Private Physician; When: 2 - 3 days; Reason: Re-evaluation by your physician. gs
--- NOTE | 2018-11-08 16:42 | ER ---
Nurse's Notes [facility] Name: Larry Hancock Age: 58 yrs Sex: Male : 1960 Arrival Date: 11/08/2018 Time: 13:33 Bed 15 Private MD: Tex Salazar V Diagnosis: Generalized abdominal pain;Urinary tract infection, site not specified Presentation: 11/08 13:51 Presenting complaint: Patient states: Back pain for the past 6 day, yesterday he aj1 started having abdominal pain, diarrhea, vomiting. States that he hasn't vomited since yesterday, but he has been having profuse diarrhea. Reports that the last time he had this kind of issue it was a bowel obstruction. Transition of care: patient was not received from another setting of care. Onset of symptoms was October 2018. Risk Assessment: Do you want to hurt yourself or someone else? Patient reports no desire to harm self or others. Initial Sepsis Screen: Does the patient meet any 2 criteria? HR > 90 bpm. No. Patient's initial sepsis screen is negative. Does the patient have a suspected source of infection? Yes: Acute abdominal pain. Care prior to arrival: None. 13:51 Method Of Arrival: Ambulatory aj1 13:51 Acuity: DIANDRA 3 aj1 Triage Assessment: 13:57 General: Appears in no apparent distress. uncomfortable, Behavior is cooperative, aj1 appropriate for age. Pain: Complains of pain in back and abdomen Pain currently is 4 out of 10 on a pain scale. Neuro: Level of Consciousness is awake, alert, obeys commands, Oriented to person, place, time, situation. Cardiovascular: Patient's skin is warm and dry. Respiratory: Airway is patent Respiratory effort is even, unlabored, Respiratory pattern is regular, symmetrical. GI: Reports diarrhea, nausea. Historical: - Allergies: 13:57 No Known Allergies; aj1 - Home Meds: 13:57 losartan-hydrochlorothiazide 100-12.5 mg oral tab 1 tab once daily [Active]; amlodipine aj1 2.5 mg tab 1 tab once daily [Active]; glucosamine-chondroitin oral oral twice a day [Active]; Super B Complex-Vitamin C oral tab daily [Active]; Vitamin D3 oral oral daily [Active]; aspirin 81 mg Oral chew 1 tab once daily [Active]; - PMHx: 13:57 Hypertension; bowel obstruction; aj1 - PSHx: 13:57 Knee surgery; shoulder surgery; vastectomy; Hernia repair; aj1 - Immunization history:: Flu vaccine is up to date. - Social history:: Smoking status: Patient uses tobacco products, smokes one pack cigarettes per day. - Ebola Screening: : Patient denies travel to an Ebola-affected area in the 21 days before illness onset. Screenin:06 Abuse screen: Denies threats or abuse. Denies injuries from another. Nutritional sg screening: No deficits noted. Tuberculosis screening: No symptoms or risk factors identified. Never had TB. Fall Risk None identified. Assessment: 14:06 General: Appears in no apparent distress. well groomed, well developed, well nourished, sg Behavior is calm, cooperative, appropriate for age. Pain: Complains of pain in abdomen and back Quality of pain is described as aching, tender. Neuro: Level of Consciousness is awake, alert, obeys commands, Oriented to person, place, time, Speech is normal, Facial symmetry appears normal. Cardiovascular: Capillary refill is brisk in bilateral fingers Patient's skin is warm and dry. Chest pain is denied. Respiratory: Airway Respiratory effort is even, unlabored, Respiratory pattern is regular, symmetrical. 14:06 GI: Abdomen is round non-distended, obese, Bowel sounds present X 4 quads. Abd is soft sg and non tender X 4 quads. Reports diarrhea, tolerance of fluids, tolerance of food. : No signs and/or symptoms were reported regarding the genitourinary system. EENT: No signs and/or symptoms were reported regarding the EENT system. Derm: Skin is pink, warm \T\ dry. Musculoskeletal: Circulation, motion, and sensation intact. Range of motion: intact in all extremities. 16:11 Reassessment: Patient appears in no apparent distress at this time. Patient and/or sg family updated on plan of care and expected duration. Pain level reassessed. Patient is alert, oriented x 3, equal unlabored respirations, skin warm/dry/pink. pt family remains at bedside at this time Patient states feeling better. 16:53 Reassessment: Patient appears in no apparent distress at this time. Patient is alert, sg oriented x 3, equal unlabored respirations, skin warm/dry/pink. Dr.Anderson at bedside at this time updating on results and POC, orders to DC pt to home. Vital Signs: 13:57 BP 104 / 77; Pulse 121; Resp 20; Temp 98.2(O); Pulse Ox 97% on R/A; Weight 117.93 kg aj1 (R); Height 6 ft. 5 in. (195.58 cm) (R); Pain 4/10; 14:33 BP 110 / 76; Pulse 92; Resp 17; Temp 98.0(O); Pulse Ox 94% on R/A; mh5 16:12 BP 112 / 72; Pulse 89; Resp 17; Pulse Ox 100% on R/A; Pain 2/10; sg 13:57 Body Mass Index 30.83 (117.93 kg, 195.58 cm) aj1 ED Course: 13:33 Patient arrived in ED. mr 13:33 Tex Salazar MD is Private Physician. mr 13:54 Triage completed. aj1 13:57 Arm band placed on Patient placed in an exam room. aj1 14:01 Jose Maria Anderson MD is Attending Physician. 14:03 Zander Rivera, MITA is Primary Nurse. sg 14:34 Patient has correct armband on for positive identification. Bed in low position. Call [facility] light in reach. Side rails up X 1. Adult w/ patient. Pulse ox on. NIBP on. 14:35 Initial lab(s) drawn, by me, sent to lab. Inserted saline lock: 20 gauge in right 5 antecubital area, using aseptic technique. Blood collected. 14:46 Basic Metabolic Panel Sent. [facility] 14:46 Basic Metabolic Panel Sent. [facility] 14:46 Hepatic Function Sent. [facility] 14:46 Lipase Sent. [facility] 15:31 CT completed. Patient tolerated procedure well. Patient moved back from CT. mw3 15:32 CT Stone Protocol In Process Unspecified. EDMS 15:35 Patient [address] back from [address]. sg 16:55 No provider procedures requiring assistance completed. IV discontinued, intact, sg bleeding controlled, No redness/swelling at site. Pressure dressing applied. Administered Medications: 15:10 Drug: NS 0.9% 1000 ml Route: IV; Rate: 1 bolus; Site: right antecubital; sg 16:15 Follow up: Response: No adverse reaction; IV Status: Completed infusion; IV Intake: sg 1000ml 15:24 Drug: fentaNYL (PF) 50 mcg Route: IVP; Site: right antecubital; sg 16:00 Follow up: Response: No adverse reaction; Pain is decreased sg Intake: 16:15 IV: 1000ml; Total: 1000ml. sg Outcome: 16:40 Discharge ordered by . 16:55 Discharged to home ambulatory, with family. sg 16:55 Condition: good 16:55 Discharge instructions given to patient, family, Instructed on discharge instructions, follow up and referral plans. safety practices, Demonstrated understanding of instructions, follow-up care, medications, Prescriptions given X 2. 17:00 Patient left the ED. ms Signatures: Dispatcher [employer] EDKaren Bustillos RN RN aj1 Zander Rivera RN RN sg Rivera, Mary mr Solis, Shivani Fowler ms [facility] Jose Maria Anderson MD MD gs Willis, Michelle mw3
[2018-11-08 17:53] VITALS: TEMP 98
[2018-11-08 17:55] VITALS: BP 112/72; O2SAT 100
== END 2018-11-08 17:00 | disposition home or self-care (01) ==
LOC: ER 13:30
DX: N39.0 Urinary tract infection, site not specified (principal); I10 Essential (primary) hypertension; F17.210 Nicotine dependence, cigarettes, uncomplicated; Z79.82 Long term (current) use of aspirin
CPT/HCPCS: 36415; 74176; 76377; 80048; 80076; 81003; 81015; 83690; 85025; 87086; 87088; 96361; 96374; 99284; J3010; J7030